=== PATIENT | female | born 1960 | race Caucasian/White ===

== ENCOUNTER 2024-03-27 16:25 | Inpatient (IN) | payer MEDICARE, OTHER ==
[~2024-03-27] VITALS: Ht 172.7 cm; Wt 124.3 kg
[2024-03-27 18:14] LABS: BASOPHILS # (AUTO) 0.1 K/uL (0.0-0.2); EOSINOPHILS # (AUTO) 0.1 K/uL (0.0-0.7); EOSINOPHILS % (AUTO) 1.4 % (0.0-6.0); HEMATOCRIT 43 % (33-45); HEMOGLOBIN 14.3 g/dL (11.5-14.8); LYMPHOCYTES % (AUTO) 28.9 % (20.0-44.0); MEAN CORPUSCULAR HEMOGLOBIN 31 PG (26.0-33.0); MEAN CORPUSCULAR HGB CONC 33 g/dl (31.0-36.0); MEAN CORPUSCULAR VOLUME 93 fL (82-100); MONOCYTES # (AUTO) 0.4 K/uL (0.1-1.30); MONOCYTES % (AUTO) 5.8 % (2.0-12.0); NEUTROPHILS # (AUTO) 4.4 K/uL (1.8-8.9); NEUTROPHILS % (AUTO) 62.9 % (43.0-81.0); PLATELET COUNT (AUTO) 187 K/uL (150-450); RED BLOOD CELL COUNT(AUTO) 4.68 MIL/uL (4.0-5.2); RED CELL DISTRIBUTION WIDTH 14.2 % (11.5-15.0); WHITE BLOOD COUNT (AUTO) 7.1 K/uL (4.3-11.0)
[2024-03-27 18:25] LABS: CALCIUM, SERUM 8.8 mg/dL (8.5-10.1); CARBON DIOXIDE 29 mmol/L (21-32); CHLORIDE 107 mmol/L (98-107); CREATININE 0.7 mg/dL (0.6-1.3); GLUCOSE 92 mg/dL (74-106); SODIUM SERUM 139 mmol/L (136-145); UREA NITROGEN, BLOOD 12 mg/dL (7-18)
[2024-03-27 18:33] LABS: ALANINE AMINOTRANSFERASE 24 U/L (12-78); ALCOHOL, BLOOD < 3 mg/dL (0-10); ALKALINE PHOSPHATASE 139 U/L (46-116); ASPARTATE AMINOTRANSFERASE 19 U/L (15-37); BILIRUBIN,DIRECT 0.1 mg/dL (0.0-0.2); BILIRUBIN,TOTAL 0.4 mg/dL (0.2-1.0)
[2024-03-27 18:38] LABS: ACETAMINOPHEN 0 ug/ml (10-30); SALICYLATE 1.3 mg/dL (2.8-20.0)
[2024-03-27] MEDS ORDERED: CALC500T88 PO (18:44)
[2024-03-27] MEDS ORDERED: LEVO100T9 PO (18:44)
[2024-03-27] MEDS ORDERED: SENN8.6T19 PO (18:44)
[2024-03-27] MEDS ORDERED: MAG30ORA PO (18:44)
[2024-03-27] MEDS ORDERED: OXIC30CR2 TP (18:44)
[2024-03-27] MEDS ORDERED: LACT10SO68 PO (18:44)
[2024-03-27] MEDS ORDERED: PYRI30TA PO (18:44)
[2024-03-27] MEDS ORDERED: ACET-868 PO (18:44)
[2024-03-27] MEDS ORDERED: PANT40TA2 PO (18:44)
[2024-03-27] MEDS ORDERED: LACT1CAP69 PO (18:44)
[2024-03-27] MEDS ORDERED: CHOL200026 PO (18:44)
[2024-03-27] MEDS ORDERED: MELA5TAB PO (18:44)
[2024-03-27] MEDS ORDERED: MULT-213 PO (18:44)
[2024-03-27] MEDS ORDERED: AMIN30LI2 PO (18:44)
[2024-03-27] MEDS ORDERED: MAGN296S72 PO (18:44)
[2024-03-27] MEDS ORDERED: POLY17PO4 PO (18:44)
[2024-03-27] MEDS ORDERED: IPRA3AMP22 IH (18:44)
[2024-03-27] MEDS ORDERED: LIDO28.310 TP (18:44)
[2024-03-27] MEDS ORDERED: GUAI100S34 PO (18:44)
[2024-03-27] MEDS ORDERED: Medication Not On Formulary EA (Ipratropium/Albuterol Sulfate (Ipratr-Albuterol 0.5-3 Mg IH PRN (23:00)
[2024-03-27] MEDS ORDERED: IPRATROPIUM NEB FS 0.5 MG/2.5 ML AMPUL.NEB IH PRN (23:45)
[2024-03-27] MEDS ORDERED: ALBUTEROL FS 2.5 MG/0.5 ML VIAL.NEB NEB PRN (23:45)
[2024-03-28] MEDS: LEVOTHYROXINE SODIUM 100 MCG TABLET PO SCH (07:30)
[2024-03-28] MEDS: PANTOPRAZOLE 40 MG TABLET.DR PO SCH (07:30)
[2024-03-28] MEDS: PROSOURCE / PROSTAT (PYXIS) 30 ML UDC PO SCH (09:00)
[2024-03-28] MEDS: SENNOSIDES 8.6 MG TABLET PO SCH (09:00)
[2024-03-28] MEDS: pyRIDostigmine BROMIDE 60 MG TABLET PO SCH (09:00)
[2024-03-28] MEDS: CHOLECALCIFEROL 1,000 UNIT TABLET (VIT D3) PO SCH (09:00)
[2024-03-28] MEDS: LACTULOSE 10 G/15 ML UDC (PYXIS) PO SCH (09:00)
[2024-03-28] MEDS: MULTIVIT W/MINERALS 1 TAB TABLET PO SCH (09:00)
[2024-03-28] MEDS ORDERED: PANTOPRAZOLE 40 MG TABLET.DR PO ONE (10:30)
[2024-03-28] MEDS ORDERED: LACTULOSE 10 G/15 ML UDC (PYXIS) ONE (10:30)
[2024-03-28] MEDS ORDERED: LEVOTHYROXINE SODIUM 50 MCG TABLET ONE (10:30)
[2024-03-28] MEDS ORDERED: CHOLECALCIFEROL 1,000 UNIT TABLET (VIT D3) ONE (10:40)
[2024-03-28] MEDS ORDERED: MULTIVIT W/MINERALS 1 TAB TABLET ONE (10:41)
[2024-03-28] MEDS ORDERED: MAGNESIUM HYDROXIDE 30 ML UDC PO PRN (12:00)
[2024-03-28] MEDS ORDERED: ACETAMINOPHEN 325 MG TABLET PO PRN (12:00)
[2024-03-28] MEDS ORDERED: MAG HYDROX/AL HYDROX/SIMETH 30 ML UDC PO PRN (12:00)
[2024-03-28 16:00] VITALS: BP 134/56; TEMP 98.7; O2SAT 97
[2024-03-28 20:19] VITALS: BP 139/62; TEMP 97.3; O2SAT 95
[2024-03-28] MEDS: ACIDOPHILUS/BULGARICUS 1 EACH TAB.CHEW PO SCH (22:00)
[2024-03-29 07:48] LABS: ALBUMIN 2.9 g/dL (3.4-5.0); BILIRUBIN,TOTAL 0.8 mg/dL (0.2-1.0); CALCIUM, SERUM 8.4 mg/dL (8.5-10.1); CREATININE 0.6 mg/dL (0.6-1.3); POTASSIUM 3.8 mmol/L (3.5-5.1); TOTAL PROTEIN, SERUM 6.8 g/dL (6.4-8.2)
[2024-03-29 07:57] LABS: CHOLESTEROL 149 mg/dL (<200); HDL CHOLESTEROL 52 mg/dL (40-60); LDL 94 mg/dL (0-99); TRIGLYCERIDES 55 mg/dL (30-150)
[2024-03-29 08:00] VITALS: BP 127/66; TEMP 98.7; O2SAT 96
[2024-03-29] MEDS: DULOXETINE HCL 30 MG CAPSULE.DR PO SCH (09:00)
[2024-03-29] MEDS: busPIRone 5 MG TABLET PO SCH (11:00)
[2024-03-29 16:00] VITALS: BP 130/69; TEMP 97.5; O2SAT 96
[2024-03-29] MEDS: Z GUARD REMEDY 4 OZ OINT TP SCH (17:52)
[2024-03-29 20:32] VITALS: BP 104/45; TEMP 97.6; O2SAT 95
[2024-03-30 08:00] VITALS: BP 129/74; TEMP 98.1; O2SAT 93
[2024-03-30 16:00] VITALS: BP 133/68; TEMP 97.5; O2SAT 96
[2024-03-30 20:00] VITALS: BP 149/77; TEMP 98.1; O2SAT 97
[2024-03-31 08:00] VITALS: BP 130/57; TEMP 97.8; O2SAT 97
[2024-03-31 16:00] VITALS: BP 134/71; TEMP 97.7; O2SAT 95
[2024-04-01 08:00] VITALS: BP 122/67; TEMP 97.9; O2SAT 96
[2024-04-01 16:00] VITALS: BP 137/57; TEMP 98; O2SAT 94
[2024-04-01 20:00] VITALS: BP 141/62; TEMP 98.6; O2SAT 96
[2024-04-02 08:00] VITALS: BP 153/66; TEMP 98; O2SAT 97
[2024-04-02] MEDS: DULOXETINE HCL 20 MG CAPSULE.DR PO SCH (08:58)
[2024-04-02 16:00] VITALS: BP 142/67; TEMP 97.9; O2SAT 96
[2024-04-02 20:00] VITALS: BP 135/59; TEMP 98.2; O2SAT 97
[2024-04-02 22:47] VITALS: BP 135/59; TEMP 98.2; O2SAT 97
[2024-04-03] MEDS: ZOLPIDEM TARTRATE 5 MG TABLET PO PRN (01:13)
[2024-04-03 08:00] VITALS: BP 141/87; TEMP 97.7; O2SAT 97
[2024-04-03 16:04] VITALS: BP 137/61; TEMP 97.7; O2SAT 98
[2024-04-03 22:20] VITALS: BP 137/61; TEMP 97.7; O2SAT 98
[2024-04-04 08:00] VITALS: BP 129/57; TEMP 97.7; O2SAT 98
== END 2024-04-04 15:30 | DRG 885 ==
LOC: ER 16:36 → GPS 20:18 → TRANSITION 23:39 → GPS 03-28 11:45
PROVIDERS: ADMIT Psychiatry & Neurology Psychiatry; ATTEND Internal Medicine
DX: F33.9 Major depressive disorder, recurrent, unspecified (principal); I11.0 Hypertensive heart disease with heart failure; E44.1 Mild protein-calorie malnutrition; Z68.41 Body mass index [BMI] 40.0-44.9, adult; F29 Unspecified psychosis not due to a substance or known physiological condition; I50.9 Heart failure, unspecified; F39 Unspecified mood [affective] disorder; F43.23 Adjustment disorder with mixed anxiety and depressed mood; K21.9 Gastro-esophageal reflux disease without esophagitis; Z79.899 Other long term (current) drug therapy; Z81.1 Family history of alcohol abuse and dependence; Z81.8 Family history of other mental and behavioral disorders; E88.09 Other disorders of plasma-protein metabolism, not elsewhere classified; M19.90 Unspecified osteoarthritis, unspecified site; Z88.2 Allergy status to sulfonamides; Z88.8 Allergy status to other drugs, medicaments and biological substances; Z88.6 Allergy status to analgesic agent; Z91.013 Allergy to seafood; Z79.890 Hormone replacement therapy; Z79.51 Long term (current) use of inhaled steroids; F41.9 Anxiety disorder, unspecified; Z73.6 Limitation of activities due to disability; E03.9 Hypothyroidism, unspecified; E55.9 Vitamin D deficiency, unspecified; E66.9 Obesity, unspecified
CPT/HCPCS: 36415; 80048-TC; 80053-TC; 80061-TC; 80076-TC; 85025-TC; 97110-TC; 97530-TC; G0378; G0480